=== PATIENT | female | born 1975 | race Caucasian/White ===

== ENCOUNTER 2018-06-24 08:45 | Emergency (ER) | payer BC ==
[2018-06-24 08:55] VITALS: BP 152/93; PULSE 94; RESP 18; TEMP 98.5
--- NOTE | 2018-06-24 09:33 | ED ---
Recheck HPI - General Chief Complaint: Recheck/Abnormal Lab/Rx Stated Complaint: med refill Time Seen by Provider: 06/24/18 08:56 Source: patient, RN notes reviewed, old records reviewed Mode of arrival: ambulatory Limitations: no limitations - History of Present Illness Initial Comments: Patient is a 42-year-old female with a history of anxiety and sleep disorder presents emergency department today complaining of needing a med refill. Patient states that she has been out of her alprazolam 2 mg 3 times a day since . She states she started to shake and have withdrawal effects. Patient states that she called the pharmacy and they did not have the prior off required by her regular prescribing physician. She states that she is trying to wait until Monday however was concerned with the shaking symptoms that she was struck to go through severe withdrawals. Patient states that she has had a history of bariatric surgery she's on a higher dose. She denies any significant complaints at this time. - Related Data Previous Rx's Medication Instructions Recorded ALPRAZolam [Xanax] 2 mg PO TID 2 Days #6 tab 06/24/18 Allergies Allergy/AdvReac Type Severity Reaction Status Date / Time No Known Allergies Allergy Verified 06/24/18 08:51 Review of Systems ROS Statement: Those systems with pertinent positive or pertinent negative responses have been documented in the HPI. ROS Other: All systems not noted in ROS Statement are negative. Past Medical History Past Medical History: Deep Vein Thrombosis (DVT) History of Any Multi-Drug Resistant Organisms: None Reported Additional Past Surgical History / Comment(s): back surgery, bariatric surgery Past Psychological History: Anxiety, Depression Smoking Status: Never smoker Past Alcohol Use History: None Reported Past Drug Use History: None Reported General Exam - General Exam Comments Initial Comments: Well-appearing 42-year-old female. No distress. Limitations: no limitations General appearance: alert Head exam: Present: atraumatic, normocephalic, normal inspection Eye exam: Present: normal appearance, PERRL, EOMI. Absent: scleral icterus, conjunctival injection, periorbital swelling ENT exam: Present: normal exam, mucous membranes moist Neck exam: Present: normal inspection. Absent: tenderness, meningismus, lymphadenopathy Respiratory exam: Present: normal lung sounds bilaterally. Absent: respiratory distress, wheezes, rales, rhonchi, stridor Cardiovascular Exam: Present: regular rate, normal rhythm, normal heart sounds. Absent: systolic murmur, diastolic murmur, rubs, gallop, clicks GI/Abdominal exam: Present: soft, normal bowel sounds. Absent: distended, tenderness, guarding, rebound, rigid Back exam: Present: normal inspection Neurological exam: Present: alert, oriented X3, CN II-XII intact Psychiatric exam: Present: normal affect, normal mood Skin exam: Present: warm, dry, intact, normal color. Absent: rash Course Vital Signs 06/24/18 08:52 Temperature 98.5 F Pulse Rate 94 Respiratory 18 Rate Blood Pressure 152/93 O2 Sat by Pulse 98 Oximetry Medical Decision Making - Medical Decision Making 42-year-old female presents to ED today for complaints of med refill. Has history of insomnia and anxiety disorder. She states she's been out of her alprazolam 2 mg 3 times a day for the past 8 days. Maps report was ran. Patient is reportedly do on the for further medications. I did discuss with the Patient and it seems that her numbers are not appropriate. Patient states that she plans to see her primary care doctor on Monday. Due to her concerns for withdrawal symptoms and some evidence of shakiness we will give the Patient one day prescription for a presently. Discussed that she follow-up with her primary care doctor on Monday and she agrees to. Disposition Clinical Impression: Encounter for medication refill Disposition: HOME SELF-CARE Condition: Good Instructions (If sedation given, give patient instructions): Medicine Refill (ED) Additional Instructions: Follow-up with your primary care doctor for further refills. Return to emergency department if any alarming signs or symptoms occur. Prescriptions: ALPRAZolam [Xanax] 2 mg PO TID 2 Days #6 tab Is patient prescribed a controlled substance at d/c from ED?: Yes When asked, does pt state using other controlled substances?: No If prescribed controlled substance>3 days was MAPS reviewed?: Prescribed <3 Days Referrals: Kale Ortiz MD [Primary Care Provider] - 1-2 days Time of Disposition: 09:30
== END 2018-06-24 09:39 | disposition home or self-care (01) ==
LOC: EC 08:45
DX: Z76.0 Encounter for issue of repeat prescription (principal); R25.9 Unspecified abnormal involuntary movements; Z98.84 Bariatric surgery status
CPT/HCPCS: 99282

== ENCOUNTER → 2020-04-29 | Outpatient (CLI) | payer MEDICAID ==
--- NOTE | 2020-04-29 13:02 | CONS ---
CONSULTATION DATE OF SERVICE: 04/29/2020 This 44-year-old lady has been evaluated in Sleep Center for her sleep problem including difficulties to fall asleep and awakenings from sleep. HISTORY OF PRESENT ILLNESS/SLEEP-WAKE EVALUATION: Patient is a shift boss worker. Subsequently, she changed her sleep schedule during the week. On working day, this is from 9 a.m. until 5:00 p.m. and on days off is from 2 to 3 a.m. until 8:30, 9 a.m. She does have problems with falling asleep, has TV set in bedroom. She usually sleeps on the side position with her . According to him, she does snore. She wakes up from sleep 3 times with one episode of nocturia. She grinds her teeth. During the day, she has problems with memory, irritability, depression and anxiety. Presently, she is taking Seroquel and Xanax before going to bed. PAST MEDICAL HISTORY: Positive for bipolar disorder, episodes of depression, anxiety, hypothyroidism, memory problems. PAST SURGICAL HISTORY: Bariatric surgery in 2008, L4-L5 microdiskectomy in 2005. MEDICATIONS: Levothyroxine 75 mcg once a day, Xanax 3 mg once a day, Seroquel 400 mg once a day, Prozac 20 mg twice a day, Lamictal 25 mg twice a day. SOCIAL HISTORY: Negative for smoking or using alcohol. FAMILY HISTORY: REVIEW OF SYSTEMS: Difficulties to initiate sleep, multiple awakenings from sleep, episodes of irritability, depression and anxiety. PHYSICAL EXAMINATION: GENERAL: lady without distress. VITAL SIGNS: BP 111/77, HR 83, RR 12, height 6 feet and 1/2 inch, weight 224.8, temperature 98.0, oxygen saturation at room air 98%. HEENT: PERRLA, EOMI. Oropharynx moderately low position of soft palate, thin Uvula. NECK: 13-1/2 inches in circumference. LUNGS: Clear to percussion and to auscultation. Good air exchange. No wheezing or rhonchi. HEART: S1, S2 regular. No murmurs, gallops, or rubs. ABDOMEN: Soft and nontender. Bowel sounds are present. No organomegaly appreciated. EXTREMITIES: No clubbing or cyanosis. SENIOR LOAN PROCESSOR: Awake, alert, and oriented X3. Cranial nerves 2 to 7 intact. There is no fasciculation or atrophy. noted. No focal deficits observed. IMPRESSION: 1. Insomnia with difficulties to initiate sleep. Psychophysiological, secondary to shift work sleep disorder and anxiety. 2. Snoring, multiple awakenings from sleep with nocturia, possible obstructive sleep apnea-hypopnea syndrome. 3. History of bipolar. 4. Status post bariatric surgery. 5. Memory problems. 6. Hypothyroidism. 7. security shift manager worker. 8. History of anemia. PLAN: 1. Polysomnography for evaluation of patient's breathing during sleep. 2. CPAP/BiPAP titration if sleep study confirms obstructive sleep apnea-hypopnea syndrome. 3. Preferable position during sleep on the side. 4. No driving if patient feels any sleepiness. 5. I will see patient for follow up visit to explain results of testing and following plan. 6. I discussed with the patient psychological techniques for treatment of insomnia including stimulus control, paradoxical intention, worry time, no watching clock in bedroom. Thank you very much for referring this patient for consultation. Sincerely, Rosalio Haley MD, PhD, FAASM Diplomat of [employer] Dumbwaiter Operator of [facility] [place] MMODL / IJN: [id number] /
== END | disposition home or self-care (01) ==
LOC: SLEEP 10:38
PROVIDERS: ATTEND Internal Medicine
DX: G47.9 Sleep disorder, unspecified (principal); F41.9 Anxiety disorder, unspecified; E03.9 Hypothyroidism, unspecified; R41.3 Other amnesia; Z86.2 Personal history of diseases of the blood and blood-forming organs and certain disorders involving the immune mechanism; Z86.59 Personal history of other mental and behavioral disorders; Z98.890 Other specified postprocedural states; Z79.890 Hormone replacement therapy; Z79.899 Other long term (current) drug therapy
CPT/HCPCS: 99211

== ENCOUNTER 2020-05-13 08:03 | Outpatient (CLI) | payer MEDICAID ==
--- NOTE | 2020-05-14 12:10 | SLS ---
SLEEP STUDY DATE OF SERVICE: 05/13/2020 POLYSOMNOGRAPHY REPORT: CLINICAL: Polysomnography has been done for evaluation of the patient's breathing during sleep. PROCEDURE: The standard montage for clinical polysomnography included the electroencephalogram, the electroculogram, the mentalis surface electromyography and Lead II cardiography. The respiratory battery consisted of measurements of nasal/buccal air flow, pressure transducer measurements from nose, thoracic, and/or abdominal effort and intercostal surface electromyography. Video monitoring has been done to check for any parasomnia events. Nocturnal oxyhemoglobin saturations were obtained by finger oximetry. RESULTS: During diagnostic sleep study, sleep efficiency decreased to 74%, latency to sleep onset although was normal 11.5 minutes. Latency to first REM period also normal 135 minutes. Sleep architecture showed absence of delta sleep and extremely short REM sleep only 1.3%. Respiratory channel showed no apneas or hypopneas with total apnea-hypopnea index was 0. Lowest oxygen level was 92.3%. Heart rate and between 51 and 94, average 78. EMG showed 9.5 periodic limb movements per hour, 1.3 microarousals per hour which is in normal range. IMPRESSION: 1. No respiratory abnormalities documented during the sleep study. Normal oxygenation during the sleep. 2. No significant periodic limb movements have been documented. 3. Sleep efficiency below normal range. Also patient has history of difficulties to initiate sleep. Clinically subsequently that indicate psychophysiological and also secondary to shift work and anxiety insomnia. 4. History of bipolar disorder. 5. Status post bariatric surgery. 6. Memory problems. 7. Hypothyroidism. 8. History of anemia. 9. convict guard worker. PLAN: 1. The patient should follow recommendation, which I discussed with her during the consultation about insomnia including stimulus control, paradoxical intention, worry time, no watching clock. 2. 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 3. Sleep hygiene. 4. No driving if feeling sleepiness. 5. I will see patient for follow-up visit to explain results of the test and recommendations. Thank you very much for allowing me to participate in management of your patient. Sincerely, Rosalio Haley MD, PhD, FAASM Diplomat of [employer] Sleep Medicine Board by [employer] Stitcher Special Machine of [facility] [place]. MMODL / IJN: [id number] /
== END 2020-05-13 16:34 | disposition home or self-care (01) ==
LOC: SLEEP 08:03
PROVIDERS: ATTEND Internal Medicine
DX: G47.9 Sleep disorder, unspecified (principal); F51.04 Psychophysiologic insomnia; F41.9 Anxiety disorder, unspecified; Z98.890 Other specified postprocedural states; F31.9 Bipolar disorder, unspecified; R41.3 Other amnesia; E03.9 Hypothyroidism, unspecified; Z86.2 Personal history of diseases of the blood and blood-forming organs and certain disorders involving the immune mechanism
CPT/HCPCS: 95810

== ENCOUNTER → 2020-06-17 | Outpatient (CLI) | payer MEDICAID ==
--- NOTE | 2020-06-17 23:54 | SFUN ---
SLEEP CENTER FOLLOW UP NOTE DATE OF SERVICE: 06/17/2020 This 44-year-old lady has been followed in Sleep Center and is here to discuss results of sleep study and following plan. I discussed the results of sleep study with the patient in detail. Sleep study did not show any significant abnormalities of respiration. It showed normal oxygenation during the sleep. There were two periods during the night when the patient did have some leg movements, but total amount of leg movements for the whole night per hour of sleep was within acceptable range. It was 9.5 per hour. But again, in two periods during the night, after which actually the patient did have some awakenings, she did have quite a significant amount of leg movements. The patient is on an iron supplement at the present time. 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 [place] Sleepiness Scale is zero. MEDICATIONS: 1. Levothyroxine 75 mcg once a day. 2. Xanax 3 mg once a day. 3. Seroquel 400 mg once a day. 4. Prozac 20 mg twice a day. 5. Lamictal 25 mg twice a day. PHYSICAL EXAMINATION: GENERAL: A pleasant patient in no distress. VITAL SIGNS: BP 114/80, HR 85, RR 14, oxygen saturation on room air 96%. Weight 227 pounds. HEENT: PERRLA, EOMI. Evaluation of oropharynx showed tongue protrudes midline. NECK: Supple. No JVD. Thyroid is not palpable. LUNGS: Clear to percussion and to auscultation. Good air exchange. No wheezing or rhonchi. HEART: S1, S2 regular. No murmurs, gallops or rubs. ABDOMEN: Soft and nontender. Bowel sounds are present. No organomegaly appreciated. EXTREMITIES: No clubbing or cyanosis. BIOCHEMISTRY TECHNICIAN: Awake, alert, and oriented X3. Cranial nerves 2 to 7 intact. There is no fasciculation or atrophy. noted. No focal deficits observed. IMPRESSION: 1. No significant respiratory abnormalities during the sleep study. 2. Total amount of periodic limb movements in normal range, but there were 2 periods during the night when the patient did has some periodic limb movements and she had awakenings after that. 3. History of bipolar disorder. 4. Status post bariatric surgery. 5. Memory problems. 6. Hypothyroidism. 7. Insomnia. 8. Possible shift work sleep disorder. 9. History of anemia. PLAN: 1. Sleep hygiene with regular time in bed for at least 7-1/2 to 8 hours. 2. Patient may use dark glasses in the morning after nightman to help her to fall asleep. 3. Precautions related to driving. No driving if feeling any sleepiness. 4. Monitoring of iron level because low level of iron may increase risk for periodic limb movements. 5. The patient could be candidate for small dose of dopaminergic agonists for periodic limb movements, but I do not think it is necessary at the present time. Again, by the standard, amount of periodic limb movements is in normal range. 6. Psychological techniques for treatment of insomnia have been discussed with the patient. She should follow those recommendations. Thank you very much for allowing me to participate in the management of your patient. Sincerely, Rosalio Haley MD, PhD, FAASM Diplomat of [employer] [employer] Electric Screw Driver Operator of [facility] [place] MMODL / GAGEN: [id number] /
== END ==
LOC: SLEEP 16:09
PROVIDERS: ATTEND Internal Medicine
DX: G47.33 Obstructive sleep apnea (adult) (pediatric) (principal); Z99.89 Dependence on other enabling machines and devices; F31.9 Bipolar disorder, unspecified; E03.9 Hypothyroidism, unspecified; Z98.84 Bariatric surgery status; G47.00 Insomnia, unspecified; R41.3 Other amnesia; Z86.2 Personal history of diseases of the blood and blood-forming organs and certain disorders involving the immune mechanism

== ENCOUNTER 2020-07-08 08:03 | Emergency (ER) | payer MEDICAID ==
[2020-07-08 08:08] VITALS: BP 121/83; PULSE 99; RESP 16; TEMP 98
[2020-07-08] MEDS ORDERED: HYDROcodone/APAP 5-325MG 1 EACH TAB PO STA (08:40)
[2020-07-08] MEDS ORDERED: predniSONE 20 MG TAB PO STA (08:40)
--- NOTE | 2020-07-08 08:47 | ED ---
Back Pain HPI - General Chief Complaint: Back Pain/Injury Stated Complaint: Back/hip Pain Time Seen by Provider: 07/08/20 08:10 Source: patient Limitations: no limitations - History of Present Illness Initial Comments: 44 year old female past medical history of lumbar radiculopathy and bursitis who presents emergency problems reported low back pain. Patient states that her oksana n started a few days ago and has gotten progressively worse. Describes it as in her bilateral ischio tuberosity regions with radiation down both of her legs. Denies weakness however has a limited range of motion secondary to pain. No saddle anesthesia. No bowel or bladder incontinence. No concern for patient is able to ambulate. She has a history of lumbar radiculopathy with discectomy in 2005. Denies any trauma. No recent falls. No fevers. No history of intravenous drug use. Patient normally takes naproxen twice daily. States she's been taking medications without improvement in her symptoms. No alcohol use, peptic ulcer disease or diabetes. No alleviating, Perceptin or modifying factors - Related Data Previous Rx's Medication Instructions Recorded ALPRAZolam [Xanax] 2 mg PO TID 2 Days #6 tab 06/24/18 HYDROcodone/APAP 7.5-325MG [[place] 1 tab PO Q6HR PRN 3 Days #12 tab 07/08/20 7.5-325] predniSONE [Deltasone] 20 mg PO BID #10 tab 07/08/20 Allergies Allergy/AdvReac Type Severity Reaction Status Date / Time No Known Allergies Allergy Verified 06/24/18 08:51 Review of Systems ROS Statement: Those systems with pertinent positive or pertinent negative responses have been documented in the HPI. ROS Other: All systems not noted in ROS Statement are negative. Past Medical History Past Medical History: Deep Vein Thrombosis (DVT) History of Any Multi-Drug Resistant Organisms: None Reported Additional Past Surgical History / Comment(s): back surgery, bariatric surgery Past Psychological History: Anxiety, Depression Smoking Status: Never smoker Past Alcohol Use History: Occasional Past Drug Use History: None Reported General Exam Limitations: no limitations Course Vital Signs 07/08/20 08:05 Temperature 98 F Pulse Rate 99 Respiratory 16 Rate Blood Pressure 121/83 O2 Sat by Pulse 97 Oximetry Medical Decision Making - Medical Decision Making Upon arrival patient is placed into room 19. There was some physical symptoms performed. Patient remains neurovascularly intact. Patient has equal strength in lower extremities. I discussed diagnosis, differential and treatment options. Patient was given a dose of prednisone and a [place] in the emergency department. Patient is instructed that she'll be placed on a short course of prednisone. May take [place] in addition for pain control. Instructed patient to stop taking her Naprosyn. This may be continued at a later time when the steroids are finished. She is to follow-up with her primary care physician within 2-4 days. May need repeat MRI and orthospine follow-up. Return to the emergency room for any new or worsening symptoms. Patient was discharged home in stable condition Disposition Clinical Impression: Bilateral sacroiliitis, Lumbar radiculopathy Disposition: HOME SELF-CARE Condition: Stable Instructions (If sedation given, give patient instructions): Lumbar Radiculopathy (ED), Sacroiliitis (ED) Additional Instructions: Please follow up with your PCP in 2-4 days. I recommend an MRI of your lumbar spine and sacrum. Do not take the Naproxen while on the steroids. May resume when steroids are gone. Return to the ED for any new or worsening symptoms. If pain persists, you may need to see the water conservation specialist. Prescriptions: predniSONE [Deltasone] 20 mg PO BID #10 tab HYDROcodone/APAP 7.5-325MG [[place] 7.5-325] 1 tab PO Q6HR PRN 3 Days #12 tab PRN Reason: Pain Is patient prescribed a controlled substance at d/c from ED?: Yes When asked, does pt state using other controlled substances?: No If prescribed controlled substance>3 days was MAPS reviewed?: Prescribed <3 Days If opioid is for acute pain is fill amount 7 days or less?: Yes If Rx opioid, was Start Talking consent form obtained?: Yes Referrals: Kale Ortiz MD [Primary Care Provider] - 1-2 days Yovani Taveras DO [Doctor of Osteopathic Medicine] - 1-2 days Prasanna Garcias DO [Doctor of Osteopathic Medicine] - 1-2 days Time of Disposition: 08:47
== END 2020-07-08 08:59 | disposition home or self-care (01) ==
LOC: EC 08:03
DX: M54.16 Radiculopathy, lumbar region (principal); M46.1 Sacroiliitis, not elsewhere classified; F32.9 Major depressive disorder, single episode, unspecified; Z86.718 Personal history of other venous thrombosis and embolism
CPT/HCPCS: 99283; J7512

== ENCOUNTER → 2021-01-26 | Outpatient (CLI) | payer MEDICAID ==
--- NOTE | 2021-01-27 04:26 | XR ---
EXAMINATION TYPE: XR chest 2V DATE OF EXAM: 01/26/2021 COMPARISON: None HISTORY: 45-year-old female with cough TECHNIQUE: PA and lateral views FINDINGS: Heart normal size. Aorta and pulmonary vasculature within normal limits. Focal masslike opacity measu ring 7.0 x 4.4 cm in the right upper lobe. There may be a small area of cavitation developing within the superior aspect of this opacity. No consolidation or pleural effusion seen elsewhere. IMPRESSION: Masslike opacity measuring 7.0 cm in the right upper lobe could represent a severe focal pneumonia wi th early air cavitation versus underlying mass. If pneumonia is suspected clinically, follow-up after treatment to ensure clearance. If the finding persists, contrast enhanced CT will be recommended.
== END | disposition home or self-care (01) ==
LOC: LABWHC1 15:24
DX: R05.9 Cough, unspecified (principal); R94.31 Abnormal electrocardiogram [ECG] [EKG]; R00.2 Palpitations
CPT/HCPCS: 71046; 93005

== ENCOUNTER → 2021-02-10 | Outpatient (CLI) | payer MEDICAID ==
--- NOTE | 2021-02-10 16:53 | CT ---
EXAMINATION TYPE: CT chest w con DATE OF EXAM: 02/10/2021 COMPARISON: None HISTORY: Abnormal findings on lung field CT DLP: 461 mGycm Automated exposure control for dose reduction was used. CONTRAST: CT scan of the chest is performed with IV Contrast, patient injected with 100 mL of Isovue 300. FINDINGS: LUNGS: Spiculated mass right upper lobe with cavitation could reflect infectious process versus neopl asm. There is evidence of pleural extension and pleural thickening. No additional masses or nodules a re seen. The lungs are otherwise clear. MEDIASTINUM: There are no greater than 1 cm hilar or mediastinal lymph nodes. No pericardial effusi on is seen. Thoracic aorta is of normal caliber. The heart is not enlarged. UPPER ABDOMEN: Postoperative changes upper abdominal bowel. Distention of the colon. Cholecystectomy clips. OTHER: No additional significant abnormality is seen. IMPRESSION: Spiculated mass right upper lobe with cavitation could reflect infectious process versus neoplasm. Re commend PET/CT.
== END | disposition home or self-care (01) ==
LOC: RADCTMAIN 15:53
PROVIDERS: ATTEND Family Medicine
DX: R91.8 Other nonspecific abnormal finding of lung field (principal)
CPT/HCPCS: 71260; Q9967

== ENCOUNTER → 2021-02-26 | Outpatient (CLI) | payer MEDICAID ==
--- NOTE | 2021-03-01 06:35 | PE ---
EXAMINATION TYPE: PET CT fusion skull to thigh DATE OF EXAM: 02/26/2021 COMPARISON: Chest CT February 10, 2021 HISTORY: Solitary pulmonary nodule, abnormal CT. TECHNIQUE: Following the intravenous administration of 9.05 mCi of F-18 FDG, whole body images are p erformed from the skull base to the midthigh. Images are reviewed on the computer in the coronal, ax ial, and sagittal planes. Reconstructed rotating images are created on independent workstation and r eviewed on the computer. A localization and attenuation correction CT is performed in conjunction w ith the PET scan. Blood glucose level was 98. SCAN: Initial Scan FINDINGS: SKULL BASE AND NECK: No areas of abnormal hypermetabolic uptake. CHEST, MEDIASTINUM, AND HILAR REGION: Persistent thick walled cavitary lesion anterior right upper mateo ng measures 3.3 x 3.1 cm axial images 94 but is noted ametabolic favoring old infection or abscess. A cute inflammation or neoplasm felt much less likely. Mild hypermetabolic uptake in prominent left axillary lymph nodes, max SUV is 3.46. Finding most likely on the basis of recent covid vaccine administration, the patient states vaccine r eceived February 16. Consider short-term ultrasound follow-up in one to 2 months time to reassess. No additional areas of abnormal hypermetabolic uptake are present. ABDOMEN AND PELVIS: No adrenal masses. Normal excretion. Mild nonspecific bowel uptake. Moderately di stended bladder. No areas of abnormal hypermetabolic uptake OSSEOUS STRUCTURES: No areas of abnormal hypermetabolic uptake. OTHER CT: Mild cardiomegaly with small to moderate-sized pericardial effusion. Small to moderate-size d hiatal hernia. Cholecystectomy clips. Prominent fecal filled colonic loops in the pelvis. Prior surgical change of g astric sleeve noted. Additional surgical sutures throughout bowel loops. Oval calcified structure ant erior pelvis uncertain etiology. Correlate clinically. Scattered pelvic phleboliths. IMPRESSION: No abnormal hypermetabolic uptake in the thick-walled cavitary lesion right upper lung fa voring old infection or abscess. Correlation with old outside x-ray or CT would be beneficial to conf irm.
== END | disposition home or self-care (01) ==
LOC: RADPETMAIN 12:53
PROVIDERS: ATTEND Family Medicine
DX: R91.1 Solitary pulmonary nodule (principal)
CPT/HCPCS: 78815; A9552

== ENCOUNTER → 2022-06-01 | Outpatient (CLI) | payer BC ==
[2022-06-01 18:09] LABS: Basophils # (A) 0.05 X 10*3/uL (0.00-0.10); Basophils % (A) 0.5 %; Eosinophils % (A) 1.8 %; HCT 39.4 % (37.2-46.3); HGB 12.8 g/dL (12.0-15.0); Immature Grans, Automated 0.3 %; Lymphocytes # (A) 1.96 X 10*3/uL (0.90-5.00); Lymphocytes % (A) 17.9 %; MCHC 32.5 g/dL (32.0-37.0); MCV 104.5 fL (80.0-97.0); Mean Platelet Volume 10.9 fL (9.5-12.2); Monocytes # (A) 0.52 X 10*3/uL (0.20-1.00); Monocytes % (A) 4.8 %; NRBC Per 100 WBC 0 /100 WBCS (0.0-0.0); Neutrophils # (A) 8.16 X 10*3/uL (1.80-7.70); Neutrophils % (A) 74.7 %; Platelet Count 213 X 10*3/uL (140-440); RBC 3.77 X 10*6/uL (4.10-5.20); RDW 11.8 % (11.5-14.5); WBC 10.92 X 10*3/uL (4.50-10.00)
[2022-06-01 18:39] LABS: ALT 20 U/L (8-44); AST 16 U/L (13-35); African American GFR (CKD) 125.2 (60.0-200.0); Albumin 3.9 g/dL (3.8-4.9); Albumin/Globulin Ratio 2.04 (1.60-3.17); Alkaline Phosphatase 125 U/L (41-126); BUN/Creat Ratio 19.46 Ratio (12.00-20.00); Blood Urea Nitrogen 11.6 mg/dL (9.0-27.0); Calcium 8.6 mg/dL (8.7-10.3); Chloride 108 mmol/L (96-109); Chol/HDL Ratio 1.73 Ratio; Globulin 1.9 g/dL (1.6-3.3); Glucose 82 mg/dL (70-110); LDL Cholesterol,Calculated 33.9 mg/dL (0.0-131.0); Sodium 142 mmol/L (135-145); Total Protein 5.8 g/dL (6.2-8.2)
== END | disposition home or self-care (01) ==
LOC: LABWHC1 12:30
PROVIDERS: ATTEND Family Medicine
DX: Z00.00 Encounter for general adult medical examination without abnormal findings (principal); E83.51 Hypocalcemia; E03.9 Hypothyroidism, unspecified; Z86.2 Personal history of diseases of the blood and blood-forming organs and certain disorders involving the immune mechanism
CPT/HCPCS: 36415; 80053; 80061; 82306; 84443; 85025

== ENCOUNTER → 2022-06-07 | Outpatient (CLI) | payer BC ==
--- NOTE | 2022-06-08 09:39 | MM ---
Reason for Exam: Screening (asymptomatic). Last mammogram was performed 4 year(s) and 6 month(s) ago. Patient History: Menarche at age 11. Patient has no children. Perimenopausal. Last menstrual period: 05/18/2022 Risk Values: Kassandra 5 year model risk: 1.0%. NCI Lifetime model risk: 10.2%. Prior Study Comparison: 11/23/2017 Bilateral Screening Mammogram, [facility]. Tissue Density: The breast tissue is heterogeneously dense. This may lower the sensitivity of mammography. Findings: Analyzed By CAD. There is no suspicious group of microcalcifications or new suspicious mass in either breast. Overall Assessment: Negative, BI-RAD 1 Management: Screening Mammogram of both breasts in 1 year. A clinical breast exam by your physician is recommended on an annual basis and results should be correlated with mammographic findings. [facility] will attempt to contact patient to return for supplemental views and ultrasound if indicated. Electronically signed and approved by: Remy Travis DO
== END | disposition home or self-care (01) ==
LOC: RADMAMWWP 07:30
PROVIDERS: ATTEND Family Medicine
DX: Z12.31 Encounter for screening mammogram for malignant neoplasm of breast (principal)
CPT/HCPCS: 77067

== ENCOUNTER → 2022-06-10 | Outpatient (CLI) | payer BC ==
[2022-06-10 22:27] LABS: Basophils # (A) 0.05 X 10*3/uL (0.00-0.10); Basophils % (A) 0.5 %; Eosinophils # (A) 0.23 X 10*3/uL (0.04-0.35); Eosinophils % (A) 2.3 %; HCT 39.1 % (37.2-46.3); HGB 12.6 g/dL (12.0-15.0); Immature Grans, Automated 0.3 %; Lymphocytes # (A) 2.58 X 10*3/uL (0.90-5.00); Lymphocytes % (A) 25.5 %; MCH 33.8 pg (27.0-32.0); MCHC 32.2 g/dL (32.0-37.0); MCV 104.8 fL (80.0-97.0); Monocytes # (A) 0.84 X 10*3/uL (0.20-1.00); Monocytes % (A) 8.3 %; NRBC Per 100 WBC 0 /100 WBCS (0.0-0.0); Neutrophils # (A) 6.38 X 10*3/uL (1.80-7.70); Neutrophils % (A) 63.1 %; Platelet Count 247 X 10*3/uL (140-440); RBC 3.73 X 10*6/uL (4.10-5.20); RDW 12.4 % (11.5-14.5); WBC 10.11 X 10*3/uL (4.50-10.00)
[2022-06-10 22:59] LABS: ALT 17 U/L (8-44); AST 15 U/L (13-35); African American GFR (CKD) 130.6 (60.0-200.0); Albumin 3.9 g/dL (3.8-4.9); Albumin/Globulin Ratio 1.88 (1.60-3.17); Alkaline Phosphatase 123 U/L (41-126); BUN/Creat Ratio 28.24 Ratio (12.00-20.00); Blood Urea Nitrogen 14.8 mg/dL (9.0-27.0); Calcium 8.4 mg/dL (8.7-10.3); Carbon Dioxide 23.7 mmol/L (20.0-27.5); Chloride 110 mmol/L (96-109); Chol/HDL Ratio 1.86 Ratio; Globulin 2.1 g/dL (1.6-3.3); Glucose 76 mg/dL (70-110); LDL Cholesterol,Calculated 35.9 mg/dL (0.0-131.0); Non-African American GFR(CKD) 112.7 (60.0-200.0); Potassium 4.3 mmol/L (3.5-5.5); Sodium 142 mmol/L (135-145); VLDL Calculation 16.38 mg/dL (5.00-40.00)
== END | disposition home or self-care (01) ==
LOC: LABWHC1 16:22
PROVIDERS: ATTEND Family Medicine
DX: Z00.00 Encounter for general adult medical examination without abnormal findings (principal); E03.9 Hypothyroidism, unspecified; E55.9 Vitamin D deficiency, unspecified; Z86.2 Personal history of diseases of the blood and blood-forming organs and certain disorders involving the immune mechanism
CPT/HCPCS: 36415; 80053; 80061; 82306; 84443; 85025

== ENCOUNTER 2022-06-27 09:21 | Emergency (ER) | payer BC ==
[2022-06-27 09:49] VITALS: BP 134/84; PULSE 62; RESP 20; TEMP 97.8
--- NOTE | 2022-06-27 11:24 | US ---
EXAMINATION TYPE: US venous doppler duplex LE RT DATE OF EXAM: 06/27/2022 11:12 AM COMPARISON: NONE CLINICAL INDICATION: Female, 46 years old with history of pain; Pain SIDE PERFORMED: Right TECHNIQUE: The lower extremity deep venous system is examined utilizing real time linear array sonog pastor with graded compression, doppler sonography and color-flow sonography. VESSELS IMAGED: Common Femoral Vein Deep Femoral Vein Greater Saphenous Vein * Femoral Vein Popliteal Vein Small Saphenous Vein * Proximal Calf Veins (* superficial vessels) Right Leg: Negative for DVT IMPRESSION: No evidence for DVT at this time.
--- NOTE | 2022-06-27 11:33 | ED ---
Lower Extremity Injury HPI - General Chief Complaint: Extremity Injury, Lower Stated Complaint: poss DVT rt leg Time Seen by Provider: 06/27/22 11:22 Source: patient, RN notes reviewed Mode of arrival: ambulatory Limitations: no limitations - History of Present Illness Initial Comments: 46-year-old female presents emergency Department with chief complaint of right leg pain. Patient has a history DVT her left leg. Patient states that her last days after having a charley horse. Patient states she is concerned about DVT no chest pain or shortness breath no symptoms. - Related Data Previous Rx's Medication Instructions Recorded ALPRAZolam [Xanax] 2 mg PO TID 2 Days #6 tab 06/24/18 HYDROcodone/APAP 7.5-325MG [[place] 1 tab PO Q6HR PRN 3 Days #12 tab 07/08/20 7.5-325] predniSONE [Deltasone] 20 mg PO BID #10 tab 07/08/20 Allergies Allergy/AdvReac Type Severity Reaction Status Date / Time No Known Allergies Allergy Verified 06/27/22 09:49 Review of Systems ROS Statement: Those systems with pertinent positive or pertinent negative responses have been documented in the HPI. ROS Other: All systems not noted in ROS Statement are negative. Past Medical History Past Medical History: Deep Vein Thrombosis (DVT) History of Any Multi-Drug Resistant Organisms: None Reported Additional Past Surgical History / Comment(s): back surgery, bariatric surgery Past Psychological History: Anxiety, Depression Smoking Status: Never smoker Past Alcohol Use History: Occasional Past Drug Use History: None Reported General Exam Limitations: no limitations General appearance: alert, in no apparent distress Head exam: Present: atraumatic, normocephalic, normal inspection Cardiovascular Exam: Present: regular rate, normal rhythm, normal heart sounds. Absent: systolic murmur, diastolic murmur, rubs, gallop, clicks Extremities exam: Present: other (Mild right calf tenderness, neurovascular intact) Course Vital Signs 06/27/22 09:47 Temperature 97.8 F Pulse Rate 62 Respiratory 20 Rate Blood Pressure 134/84 O2 Sat by Pulse 99 Oximetry Medical Decision Making - Medical Decision Making Was pt. sent in by a medical professional or institution (, PA, [employer], urgent care, hospital, or jail...) When possible be specific @ -No Did you speak to anyone other than the patient for history (EMS, parent, family, police, friend...)? What history was obtained from this source @ -No Did you review nursing and triage notes (agree or disagree)? Why? @ -I reviewed and agree with nursing and triage notes Were old charts reviewed (outside hosp., previous admission, EMS record, old EKG, old radiological studies, urgent care reports/EKG's, jail records)? Report findings @ -No old charts were reviewed Differential Diagnosis (chest pain, altered mental status, abdominal pain women, abdominal pain men, vaginal bleeding, weakness, fever, dyspnea, syncope, headache, dizziness, GI bleed, back pain, seizure, CVA, palpatations, mental health, musculoskeletal)? @ -Right calf strain, right leg pain, DVT EKG interpreted by me (3pts min.). @ -None X-rays interpreted by me (1pt min.). @ -None done CT interpreted by me (1pt min.). @ -None done U/S interpreted by me (1pt. min.). @ -RIGHT LEG SHOWS NO EVIDENCE OF DVT What testing was considered but not performed or refused? (CT, X-rays, U/S, labs)? Why? @ -None What meds were considered but not given or refused? Why? @ -None Did you discuss the management of the patient with other professionals (professionals i.e. , PA, [employer], lab, RT, psych nurse, bilingual social worker, immigration lawyer, teacher, chief accounting officer, child welfare caseworker)? Give summary @ -No Was smoking cessation discussed for >3mins.? @ -No Was critical care preformed (if so, how long)? @ -No Were there social determinants of health that impacted care today? How? (Homelessness, low income, unemployed, alcoholism, drug addiction, transportation, low edu. Level, literacy, decrease access to med. care, prison, rehab)? @ -No Was there de-escalation of care discussed even if they declined (Discuss DNR or withdrawal of care, Hospice)? DNR status @ -No What co-morbidities impacted this encounter? (DM, HTN, Smoking, COPD, CAD, Cancer, CVA, ARF, Chemo, Hep., AIDS, mental health diagnosis, sleep apnea, morbid obesity)? @ -None Was patient admitted / discharged? Hospital course, mention meds given and route, prescriptions, significant lab abnormalities, going to OR and other pertinent info. @ -Discharge ultrasound negative. We did have a long discussion regarding possible muscle strain. Patient will follow-up for recheck return for any worsening symptoms. Undiagnosed new problem with uncertain prognosis? @ -No Drug Therapy requiring intensive monitoring for toxicity (Heparin, Nitro, Insulin, Cardizem)? @ -No Were any procedures done? @ -No Diagnosis/symptom? @ -Right calf pain Acute, or Chronic, or Acute on Chronic? @ -Acute Uncomplicated (without systemic symptoms) or Complicated (systemic symptoms)? @ -Uncomplicated Side effects of treatment? @ -No Exacerbation, Progression, or Severe Exacerbation? @ -No Poses a threat to life or bodily function? How? (Chest pain, [place], MA, pneumonia, PE, COPD, DKA, ARF, appy, cholecystitis, CVA, Diverticulitis, Homicidal, Suicidal, threat to staff... and all critical care pts) @ -No Disposition Clinical Impression: Right calf pain Disposition: HOME SELF-CARE Condition: Stable Instructions (If sedation given, give patient instructions): Leg Cramps (ED) Additional Instructions: Please return to the Emergency Department if symptoms worsen or any other concerns. Is patient prescribed a controlled substance at d/c from ED?: No Referrals: Kale Ortiz MD [Primary Care Provider] - 1-2 days Time of Disposition: 11:33
== END 2022-06-27 12:01 | disposition home or self-care (01) ==
LOC: EC 09:21
DX: M79.661 Pain in right lower leg (principal); F32.A Depression, unspecified; F41.9 Anxiety disorder, unspecified
CPT/HCPCS: 99283

== ENCOUNTER → 2023-07-26 | Outpatient (CLI) | payer BC ==
--- NOTE | 2023-07-26 13:48 | MM ---
Reason for Exam: Screening (asymptomatic). Last mammogram was performed 1 year(s) and 2 month(s) ago. Patient History: Menarche at age 11. Patient has no children. Perimenopausal. Risk Values: Kassandra 5 year model risk: 1.0%. NCI Lifetime model risk: 10.0%. Prior Study Comparison: 11/23/2017 Bilateral Screening Mammogram, [facility]. 06/07/2022 Bilateral MG screening mammo w CAD, [facility]. Tissue Density: There are scattered areas of fibroglandular density. Findings: Analyzed By CAD. Right breast: There is no suspicious group of microcalcifications or new suspicious mass. Left breast: There is no suspicious group of microcalcifications or new suspicious mass. Overall Assessment: Negative, BI-RAD 1 Management: Screening Mammogram of both breasts in [address] [facility] will attempt to contact patient to return for supplemental views and ultrasound if indicated. Patient should continue monthly self-breast exams. A clinical breast exam by your physician is recommended on an annual basis. This exam should not preclude additional follow-up of suspicious palpable abnormalities. Note on Kassandra scores and lifetime risk: 1. A Kassandra score greater than 3% is considered moderate risk. If this is the case, consider specialist referral to assess eligibility for a risk reducing agent. 2. If overall lifetime risk for the development of breast cancer is 20% or higher, the patient may qualify for future screening with alternating mammogram and breast MRI. Electronically signed and approved by: Remy Travis DO
== END | disposition home or self-care (01) ==
LOC: RADMAMWWP 13:15
PROVIDERS: ATTEND Family Medicine
DX: Z12.31 Encounter for screening mammogram for malignant neoplasm of breast (principal)
CPT/HCPCS: 77063; 77067

== ENCOUNTER 2024-05-31 11:18 | Day surgery (SDC) | payer BC ==
--- NOTE | 2024-05-30 12:14 | P.HPIHPCON ---
History of Present Illness H&P Date: 05/30/24 Chief Complaint: Left ureteral stone This is a 48-year-old female with history of a 1.2 cm left-sided proximal ureteral stone. Option of left-sided ureteroscopy with holmium laser was discussed with her in detail. Alternative of ESWL was also discussed. She agreed to proceed with left-sided ureteroscopy with holmium laser, she is aware of the risk which include but not limited to bleeding, infection, injury to the ureter Consent for Procedure: I have explained the operation/procedure to the patient, including the risks, benefits, side effects, alternative therapies (including not receiving the proposed treatment or service), the likelihood of the patient achieving his/her goals, and potential recuperation problems for the procedure/sedation/analgesia, as well as any blood products, if indicated. I also explained to the patient the risks, benefits and side effects of the alternatives, as well as the risks related to not receiving the proposed procedure, care, treatment, or services. Past Medical History Past Medical History: Asthma, Deep Vein Thrombosis (DVT), Thyroid Disorder Additional Past Medical History / Comment(s): current kidney stones. adult onset asthma. zepbound for wt loss.bursitis to hips. History of Any Multi-Drug Resistant Organisms: None Reported Past Surgical History: Appendectomy, Bariatric Surgery, Cholecystectomy Additional Past Surgical History / Comment(s): back surgery, lithotripsy Past Anesthesia/Blood Transfusion Reactions: No Reported Reaction Smoking Status: Never smoker - Past Family History Father Family Medical History: Cancer, Diabetes Mellitus Additional Family Medical History / Comment(s): bladder liver bone prostate cancer Mother Family Medical History: Diabetes Mellitus Medications and Allergies Home Medications Medication Instructions Recorded Confirmed Type HYDROcodone/APAP 7.5-325MG [[place] 1 tab PO Q6HR PRN 3 Days #12 tab 07/08/20 05/30/24 Rx 7.5-325] Unk Vitamin D 1 tab PO DAILY 05/30/24 05/30/24 History ALPRAZolam [Xanax] 0.25 mg PO QID PRN 05/30/24 05/30/24 History FLUoxetine HCL [PROzac] 20 mg PO Q48H 05/30/24 05/30/24 History FLUoxetine HCL [Prozac] 40 mg PO Q48H 05/30/24 05/30/24 History Levothyroxine Sodium [Synthroid] 75 mcg PO DAILY 05/30/24 05/30/24 History Montelukast [Singulair] 10 mg PO DAILY 05/30/24 05/30/24 History Mutli Vitamin 1 tab PO DAILY 05/30/24 05/30/24 History Naproxen [EC-Naproxen] 500 mg PO BID 05/30/24 05/30/24 History Tamsulosin HCl [Flomax] 0.4 mg PO DAILY 05/30/24 05/30/24 History Tirzepatide [Zepbound] 7.5 mg SQ TH 05/30/24 05/30/24 History Unk Calcium 1 tab PO DAILY 05/30/24 05/30/24 History Unk Mg+ 1 tab PO DAILY 05/30/24 05/30/24 History Unk Vitamin C 1 tab PO DAILY 05/30/24 05/30/24 History Unk Vitamin A 1 tab PO DAILY 05/30/24 05/30/24 History Unk Zinc 1 tab PO DAILY 05/30/24 05/30/24 History Allergies Allergy/AdvReac Type Severity Reaction Status Date / Time No Known Allergies Allergy Verified 05/30/24 08:43 Surgical - Exam - General no distress, moderate pain - Eyes normal ocular movement, no pale - ENT normal nares, normal mucosa - Respiratory normal expansion, normal respiratory effort - Abdomen Abdomen: soft, non tender - Psychiatric oriented to time, oriented to person, oriented to place Assessment and Plan Assessment: OR for left side ureteroscopy, holmium laser lithotripsy, stone basketing and stent insertion
[~2024-05-31 11:18] MED LIST: HYDROmorphone 0.5 MG/0.5 ML SYRINGE IVP PRN; LIDOCAINE 1% (10MG/ML) FOR IV START INTRADERMA PRN
--- NOTE | 2024-05-31 12:13 | XR ---
EXAMINATION TYPE: XR KUB DATE OF EXAM: 05/31/2024 11:36 AM COMPARISON: None. CLINICAL INDICATION: Female, 48 years old with history of N20.1 ureteral stone, TECHNIQUE: Single view of the abdomen. FINDINGS: Right renal calculi: None Visualized. Right ureteral calculi: None Visualized. Left renal calculi: None Visualized. Left ureteral calculi: None Visualized. Pelvic calcifications: Yes Bowel gas pattern is unremarkable. No free air. No mass effects. Severe constipation noted. This do es limit evaluation for nephrolithiasis. A shell calcification right hemipelvis is of uncertain etiol ogy. IMPRESSION: 1. As above [facility], , 05/31/2024 12:11 PM
[2024-05-31] MEDS: ONDANSETRON 4 MG/2 ML VIAL IVP ONE ×2 (12:35→16:14)
[2024-05-31] MEDS: fentaNYL (PF) 50 MCG/ML 2 ML AMP IVP PRN (12:35)
[2024-05-31] MEDS: LACTATED RINGERS 1,000 ML IV SCH (12:35)
[2024-05-31] MEDS: DEXAMETHASONE SOD PHOSPHATE 4 MG/ML 1 ML VIAL IV ONE (12:35)
[2024-05-31] MEDS: MIDAZOLAM 2 MG/2 ML VIAL IV PRN (12:35)
[2024-05-31] MEDS: IV FLUID CONTINUATION 1,000 ML IV ONE ×2 (12:35→15:12)
[2024-05-31 12:51] LABS: Glucose,Whole Blood 82 mg/dL (70-110)
[2024-05-31] MEDS ORDERED: MIDAZOLAM 2 MG/2 ML VIAL ONE (13:05)
[2024-05-31] MEDS ORDERED: PROPOFOL 10 MG/ML 20 ML VIAL IV ONE (13:05)
[2024-05-31] MEDS ORDERED: fentaNYL (PF) 50 MCG/ML 2 ML AMP ONE (13:05)
[2024-05-31] MEDS ORDERED: LIDOCAINE 1% INJ 10MG/ML (20 ML MDV) ONE (13:05)
--- NOTE | 2024-05-31 14:26 | FL ---
EXAMINATION TYPE: FL guidance operating room DATE OF EXAM: 05/31/2024 CLINICAL HISTORY: Low back pain. TECHNIQUE: Fluoroscopy. COMPARISON: None. FINDINGS: Fluoroscopic guidance was provided during pain relief procedure performed by Dr. Vicente . A total of 21.3 seconds of fluoroscopic time was utilized during the procedure and two spot images are acquired. Images acquired shows needle localization . IMPRESSION: As Above. [facility], , 05/31/2024 2:24 PM
--- NOTE | 2024-05-31 14:30 | P.OP ---
Date of Procedure: 05/31/24 Preoperative Diagnosis: left ureteral stone Postoperative Diagnosis: same Procedure(s) Performed: cystoscopy, left ureteroscopy, holmium laser, stone basketting and stent insertion Implants: 6Fr x 26 cm stent Anesthesia: MICHELLE Surgeon: Benjamín Muller Estimated Blood Loss (ml): 5 Pathology: other (left ureteral stone) Condition: stable Disposition: PACU Indications for Procedure: This is a 48-year-old female with history of a 1.2 cm left-sided proximal ureteral stone. Option of left-sided ureteroscopy with holmium laser was discussed with her in detail. Alternative of ESWL was also discussed. She agreed to proceed with left-sided ureteroscopy with holmium laser, she is aware of the risk which include but not limited to bleeding, infection, injury to the ureter Operative Findings: Left proximal ureteral stone Description of Procedure: Patient brought the operating room, general anesthesia was induced. She was prepped and draped in sterile fashion placed in dorsolithotomy position. Cystoscopy fitted with a 21 Romanian sheath was inserted per urethra, cystoscopy was performed which showed no abnormality within the bladder. Attention was then carried to the left ureteral orifice, a sensor wire was advanced through the scope and up the left ureteral orifice, there was a radiopaque stone at the proximal ureter, I was able to navigate the wire past the stone into the kidney. Next under fluoroscopy an 1113 Romanian access sheath was passed over the wire and into the proximal ureter just distal to the stone. Next a flexible ureteroscope was inserted through the access sheath, ureteroscopy was performed showed a stone in the proximal ureter. Using the holmium laser the stone was fragmented, stone fragments were removed using the stone basket. At this time I advanced the scope into the kidney, renoscopy was performed showed no sizable fragments or injury to the kidney. On fluoroscopy there was no radiopaque density seen. Pullback ureteroscopy was performed showed no injury to the ureter or any ureteral stones, as ureteroscope was withdrawn a sensor wire was advanced through. Next a ureteral stent was passed over the wire, the proximal curl was visualized on fluoroscopy and the distal curl was visualized in the cystoscope. The bladder was emptied at the end of the case. Patient tolerated procedure was taken to recovery in stable condition
[2024-05-31 14:34] VITALS: TEMP 97.1
[2024-05-31 15:43] VITALS: RESP 16
[2024-05-31] MEDS: KETOROLAC 15 MG/ML 1 ML VIAL IVP STA (16:08)
[2024-05-31] MEDS: ACETAMINOPHEN IV (For NPO) 1,000 MG in EMPTY BAG 1 BAG IVPB STA (16:09)
[2024-05-31 16:25] VITALS: BP 117/63; PULSE 72
== END 2024-05-31 17:15 | disposition home or self-care (01) ==
LOC: OR 11:18
PROVIDERS: ATTEND Urology
DX: N20.1 Calculus of ureter (principal); J45.909 Unspecified asthma, uncomplicated; E07.9 Disorder of thyroid, unspecified; Z79.890 Hormone replacement therapy; Z86.718 Personal history of other venous thrombosis and embolism; Z90.49 Acquired absence of other specified parts of digestive tract; Z79.899 Other long term (current) drug therapy
CPT/HCPCS: 52356; 81025; 82365; 74018; C2625; C1769; J2250; J1100; J0690; J2405; J2003; J3010; J0131; J1885; J2704

== ENCOUNTER → 2024-07-04 | Outpatient (CLI) | payer BC ==
--- NOTE | 2024-07-04 15:11 | XR ---
EXAMINATION TYPE: XR KUB DATE OF EXAM: 07/04/2024 COMPARISON: KUB radiograph 05/31/2024, PET CT 02/26/2021 HISTORY: Calculus of ureter TECHNIQUE: Single supine KUB image of the abdomen is obtained FINDINGS: Small bowel demonstrates no evidence for dilatation or air fluid levels. Moderate amount of stool is present throughout the left colon and rectum. No convincing evidence for pneumoperitoneum. No definitive renal calculus identified. No definitive ureteral calculus. Calcified fat necrosis iden tified within the pelvis again. Fibroid calcification identified again. Right-sided pelvic phlebolith s redemonstrated. Cholecystectomy clips are upper quadrant. Additional surgical clips within the mid abdomen, right low er quadrant and pelvis. The lung bases are clear. The osseous structures are intact. IMPRESSION: As above. [facility], , 07/04/2024 3:08 PM
== END | disposition home or self-care (01) ==
LOC: RADXRMAIN 14:38
PROVIDERS: ATTEND Urology
DX: N20.1 Calculus of ureter (principal)
CPT/HCPCS: 74018